=== PATIENT | male | born 1975 | race Asian ===

== ENCOUNTER 2018-03-03 09:25 | Emergency (ER) | payer OTHER ==
[~2018-03-03] VITALS: Ht 175.3 cm; Wt 81.6 kg
[2018-03-03 10:36] VITALS: BP 149/99; TEMP 98.7
== END 2018-03-03 10:42 | disposition home or self-care (01) ==
LOC: ED 09:25
PROC: 2W3LX1Z Immobilization of Right Lower Extremity using Splint (ICD-10-PCS; principal; 2018-03-03)
DX: S83.91XA Sprain of unspecified site of right knee, initial encounter (principal); M25.861 Other specified joint disorders, right knee; X50.1XXA Overexertion from prolonged static or awkward postures, initial encounter
CPT/HCPCS: 96372; 99282; J1885; L1830

== ENCOUNTER 2022-03-05 10:34 | Emergency (ER) | payer BC ==
[~2022-03-05] VITALS: Ht 175.3 cm; Wt 81.6 kg
[2022-03-05 10:36] VITALS: TEMP 99.5
[2022-03-05 12:30] VITALS: BP 168/104
== END 2022-03-05 12:32 | disposition home or self-care (01) ==
LOC: ED 10:34
DX: L23.9 Allergic contact dermatitis, unspecified cause (principal)
CPT/HCPCS: 99283